=== PATIENT | male | born 1955 | race Caucasian/White ===

== ENCOUNTER 2017-11-19 11:57 | Emergency (ER) | payer OTHER ==
[~2017-11-19] VITALS: Ht 167.6 cm; Wt 65.3 kg
[2017-11-19] MEDS ORDERED: LIORESAL 10 MG10 MG PO (12:23)
[2017-11-19] MEDS ORDERED: MOBIC15 MG PO (13:59)
[2017-11-19 14:05] VITALS: BP 112/65
== END 2017-11-19 14:06 | disposition home or self-care (01) ==
LOC: EDBD 11:57 → ER 11:57
DX: S16.1XXA Strain of muscle, fascia and tendon at neck level, initial encounter (principal); S29.012A Strain of muscle and tendon of back wall of thorax, initial encounter; S09.90XA Unspecified injury of head, initial encounter; V47.5XXA Car driver injured in collision with fixed or stationary object in traffic accident, initial encounter; Z88.0 Allergy status to penicillin; Y93.89 Activity, other specified; Y92.410 Unspecified street and highway as the place of occurrence of the external cause; Y99.8 Other external cause status